=== PATIENT | female | born 1990 | race Two or more races ===

== ENCOUNTER 2020-04-02 15:54 | Emergency (ER) | payer SELFPAY ==
--- NOTE | 2020-04-02 16:10 | NUR ---
CALLED TO TRIAGE NO ANSWER.
--- NOTE | 2020-04-02 16:28 | NUR ---
LEFT WITHOUT BEING TRIAGE.
--- NOTE | 2020-04-02 16:28 | NUR ---
CALLED TO TRIAGE NO ANSWER.
== END 2020-04-02 16:29 | disposition left against medical advice (07) ==
LOC: ER 15:54
DX: Z53.21 Procedure and treatment not carried out due to patient leaving prior to being seen by health care provider (principal)

== ENCOUNTER 2020-05-31 07:54 | Emergency (ER) | payer OTHER ==
[~2020-05-31] VITALS: Ht 157.5 cm; Wt 65.8 kg
[2020-05-31 07:58] VITALS: BP 135/81
--- NOTE | 2020-05-31 08:02 | NUR ---
SEEN AND EXAMINED BY .
--- NOTE | 2020-05-31 08:08 | NUR ---
[facility] AT BEDSIDE FOR XRAY.
[2020-05-31] MEDS ORDERED: IBUPROFEN 400 MG TABLET ONE (08:33)
[2020-05-31] MEDS: IBUPROFEN 400 MG TABLET PO ONE (08:35)
--- NOTE | 2020-05-31 08:51 | NUR ---
Patient given written and verbal discharge instructions. Patient verbalizes understanding of instructions. Patient is ambulatory with steady gait. Refuses offer of alf placement. Patient given list of available shelters in surrounding area. Discharged in proper clothing, all belongings with the patient, name band removed.
== END 2020-05-31 08:55 | disposition home or self-care (01) ==
LOC: ER 07:54
DX: L03.011 Cellulitis of right finger (principal)
CPT/HCPCS: 73140-TC